=== PATIENT | male | born 1955 | race Caucasian/White ===

== ENCOUNTER → 2021-03-03 | Outpatient (CLI) | payer MEDICARE | LOC: KOH-I 12:35 | DX: F17.210 Nicotine dependence, cigarettes, uncomplicated (principal) | CPT/HCPCS: 71271 ==

== ENCOUNTER 2021-11-21 17:28 | Emergency (ER) | payer MEDICARE ==
[~2021-11-21] VITALS: Ht 182.9 cm; Wt 86.2 kg
[2021-11-21 19:04] LABS: HEMOGLOBIN 9.3 gm/dl (14.0-17.5); RED BLOOD COUNT 3.16 M/UL (4.20-5.50); WHITE BLOOD COUNT 10.5 K/UL (4.5-11.0)
[2021-11-22 03:10] LABS: HEMOGLOBIN 8.2 gm/dl (14.0-17.5)
[2021-11-22 06:48] LABS: HEMOGLOBIN 8.4 gm/dl (14.0-17.5)
[2021-11-22 09:45] LABS: HEMOGLOBIN 8.8 gm/dl (14.0-17.5); RED BLOOD COUNT 2.91 M/UL (4.20-5.50); WHITE BLOOD COUNT 9.9 K/UL (4.5-11.0)
[2021-11-22] MEDS ORDERED: FINASTERIDE5 MG PO (16:59)
[2021-11-22] MEDS ORDERED: FAMOTIDINE20 MG PO (16:59)
[2021-11-22] MEDS ORDERED: PHENAZOPYRIDIN200 MG PO (16:59)
[2021-11-22] MEDS ORDERED: TAMSULOSIN HCL0.4 MG PO (17:00)
[2021-11-22] MEDS ORDERED: ATORVASTATIN CA20 MG PO (17:00)
[2021-11-22] MEDS ORDERED: DAILY VALUE1 EACH PO (17:01)
[2021-11-22] MEDS ORDERED: ASPIRIN EC81 MG PO (17:01)
[2021-11-22] MEDS ORDERED: LORATADINE10 MG PO (17:01)
[2021-11-22] MEDS ORDERED: LEVOTHYROXINE25 MCG PO (17:01)
[2021-11-23 04:33] LABS: HEMOGLOBIN 7.2 gm/dl (14.0-17.5)
[2021-11-23 04:34] LABS: RED BLOOD COUNT 2.42 M/UL (4.20-5.50); WHITE BLOOD COUNT 7.4 K/UL (4.5-11.0)
[2021-11-23 12:08] LABS: WHITE BLOOD COUNT 8.9 K/UL (4.5-11.0)
[2021-11-23 12:09] LABS: RED BLOOD COUNT 3.31 M/UL (4.20-5.50)
[2021-11-23 12:10] LABS: HEMOGLOBIN 9.6 gm/dl (14.0-17.5)
== END 2021-11-23 19:00 | disposition short-term general hospital (02) ==
LOC: ER1 17:28
PROVIDERS: Emergency Medicine; Physician Assistant; Physician Assistant Medical; Student in an Organized Health Care Education/Training Program
DX: N39.0 Urinary tract infection, site not specified (principal); R31.9 Hematuria, unspecified; D62 Acute posthemorrhagic anemia; F17.210 Nicotine dependence, cigarettes, uncomplicated; Z20.822 Contact with and (suspected) exposure to COVID-19
CPT/HCPCS: 36430; 80048; 80053; 81001; 82728; 83540; 83550; 83605; 85014; 85018; 85025; 85610; 86850; 86900; 86901; 86920; 87040; 93005; 96374; 96376; 99285; J0696; J2405; P9016; U0002